=== PATIENT | female | born 1990 | race Caucasian/White ===

== ENCOUNTER → 2017-01-11 | Outpatient (CLI) | payer OTHER ==
[2016-01-27 15:00] VITALS: BP 130/84
[~2017-01-11] MED LIST: SULF-143
--- NOTE | 2017-01-12 09:06 | KCIC ---
Examination: MRI of the right knee without contrast HISTORY: History of right knee pain, meniscal superior, medial knee pain. COMPARISON: None available TECHNIQUE: Multiplanar, multisequence MR imaging of the right knee was performed contrast FINDINGS: The anterior cruciate ligament, posterior cruciate ligament appear intact. Lateral meniscus is intact. There is blunting of the posterior horn of the medial meniscus with extension of the meniscus into the intercondylar notch, best visualized on series 8 image #10 and image #12, question bucket-handle tear. There is slight the oblique increased signal identified in the posterior horn of the medial meniscus likely tiny meniscal cyst measuring 2 mm posterior to the posterior of the medial meniscus. The medial collateral ligament is intact. The lateral collateral ligamentous complex including the fibular collateral ligament, biceps femoris tendon, popliteus tendon appear intact. The extensor mechanism is intact. Mild increased signal identified in the quadriceps tendon likely mild tendinosis. Small knee joint effusion. The medial retinaculum, lateral retinaculum appear intact. There is minimal superficial fraying of cartilage identified in the patellofemoral compartment, medial, lateral compartments. There is mild intermediate T1 signal identified anterior to the infrapatellar tendon probably scarring change. IMPRESSION: 1. Tear of the posterior horn of the medial meniscus with a tiny posterior meniscus cyst. There is suggestion of double PCL sign with some extension of medial meniscus in the intercondylar notch, best visualized on series 8 image #10 and image #12 question bucket-handle tear. 2. Small knee joint effusion. 3. Mild tricompartmental degenerative changes. Electronically signed by: Cong Holden MD (01/12/2017 9:03 AM) [id number]
== END | disposition home or self-care (01) ==
LOC: KCIC MRI 17:23
PROVIDERS: ATTEND Orthopaedic Surgery
DX: S83.211A Bucket-handle tear of medial meniscus, current injury, right knee, initial encounter (principal); M25.461 Effusion, right knee; X58.XXXA Exposure to other specified factors, initial encounter; Y93.89 Activity, other specified; Y92.89 Other specified places as the place of occurrence of the external cause; Y99.8 Other external cause status
CPT/HCPCS: 73721

== ENCOUNTER → 2017-02-17 | Outpatient (CLI) | payer OTHER ==
[2016-01-27 15:00] VITALS: BP 130/84
--- NOTE | 2017-02-17 09:43 | KCIC ---
LOWER EXT JOINT WO LT dated 02/17/2017 8:45 AM Indication: Left knee pain , pain for 6 months , swelling, medial aspect pain Comparison: No comparison is available. Technique: Routine multiplanar multisequence imaging performed. No contrast administered. Findings: Bone marrow signal is homogeneous. No marrow edema. Articular cartilage is intact. No osteochondral defect. No joint effusion or loose body. Anterior cruciate and posterior cruciate ligaments are intact. Medial and lateral collateral complex is are intact. Iliotibial band, popliteus tendon and pes anserine complex within normal limits. Quadriceps and patellar tendon are intact. No abnormality of the medial or lateral retinaculum. Both menisci are normal in morphology and signal. No articular surface tear or para meniscal cyst. There is some linear signal at the posterior horn and body of medial meniscus that does not appear to reach an articular surface. IMPRESSION: 1. Linear signal at the posterior horn and body of medial meniscus does not reach an articular surface and does not meet strict criteria for meniscal tear. This could be related to mucoid degeneration. A early horizontal cleavage tear cannot be excluded. 2. Otherwise no evidence of internal derangement. Electronically signed by: Chucho Goldsmith MD (02/17/2017 9:40 AM) [id number]
== END | disposition home or self-care (01) ==
LOC: KCIC MRI 08:30
PROVIDERS: ATTEND Physician Assistant Surgical
DX: M25.562 Pain in left knee (principal)
CPT/HCPCS: 73721